=== PATIENT | female | born 1980 | race Native Hawaiian/Other Pacific Islander ===

== ENCOUNTER 2021-05-25 11:07 | Emergency (ER) | payer BC ==
[~2021-05-25] VITALS: Ht 167.6 cm; Wt 70.3 kg
[2021-05-25 11:48] LABS: PLATELET COUNT 474 K/uL (152-353)
[2021-05-25 11:56] LABS: POTASSIUM 3.1 mmol/L (3.6-5.2)
[2021-05-25 13:35] VITALS: BP 148/70; TEMP 97.4
== END 2021-05-25 13:37 | disposition home or self-care (01) ==
LOC: ED 11:07
PROVIDERS: Emergency Medicine
DX: R11.2 Nausea with vomiting, unspecified (principal); E87.6 Hypokalemia
CPT/HCPCS: 36415; 80048; 84484; 85027; 96360; 96365; 96375; 96376; 99284; J1170; J2405; J2550

== ENCOUNTER 2022-09-23 12:34 | Outpatient (CLI) | payer BC | END 2022-09-23 19:12 | disposition home or self-care (01) | LOC: US 12:34 | PROVIDERS: ATTEND Physician Assistant | DX: R22.1 Localized swelling, mass and lump, neck (principal) ==